=== PATIENT | male | born 1975 | race Caucasian/White ===

== ENCOUNTER 2017-10-04 08:09 | Emergency (ER) | payer BC ==
[2017-10-04 08:21] VITALS: BP 168/90
--- NOTE | 2017-10-04 08:35 | UC ---
Lower Extremity/Ankle HPI - HPI Summary HPI Summary: 41 year old patient, complains of left foot pain onset yesterday but this morning it was very intense. 05/13. Denies history of gout. Denies history of fall, sprain or trauma. Current medications are lisinopril and omeprazole and occasional NSAID for pain. - History of Current Complaint Chief Complaint: UCLowerExtremity Stated Complaint: FOOT PAIN Time Seen by Provider: 10/04/17 08:26 Pain Intensity: 10 - Allergies/Home Medications Allergies/Adverse Reactions: Allergies Allergy/AdvReac Type Severity Reaction Status Date / Time propulcid Allergy Severe coughing Uncoded 10/04/17 08:17 blood PMH/Surg Hx/FS Hx/Imm Hx Previously Healthy: Yes Cardiovascular History: Hypertension GI/ History: Gastroesophageal Reflux - Surgical History Surgical History: None - Social History Alcohol Use: None Substance Use Type: None Smoking Status (MU): Never Smoked Tobacco Review of Systems Constitutional: Negative Musculoskeletal: Arthralgia - left mid foot All Other Systems Reviewed And Are Negative: Yes Physical Exam Triage Information Reviewed: Yes Appearance: Pain Distress, Obese Vital Signs: Initial Vital Signs Temp 98.8 F 10/04/17 08:18 Pulse 92 10/04/17 08:18 Resp 16 10/04/17 08:18 BP 168/90 10/04/17 08:18 Pulse Ox 100 10/04/17 08:18 Vital Signs Reviewed: Yes Eyes: Positive: Conjunctiva Clear Neck: Positive: Supple, Nontender Respiratory: Positive: Chest non-tender, Normal breath sounds, No respiratory distress Cardiovascular: Positive: Pulses Normal, Brisk Capillary Refill Musculoskeletal: Positive: No Edema, Other: - no induration on left foot. No edema or erythema, pedal pulses symmetrical and present, tenderness on plantarflexion and medial midfoot area Skin Exam: Normal Lower Extremity Course/Dx - Course Course Of Treatment: XRAY of left foot within normal limits no fracture. Start indomethacin for pain control. Review of crutch use and boot. Follow up with orthopedics. - Differential Dx/Diagnosis Provider Diagnoses: Left Medial Midfoot pain Discharge - Discharge Plan Condition: Stable Disposition: HOME Patient Education Materials: Arthralgia (ED) Referrals: Felix Herndon MD [Primary Care Provider] - Images Feet (Multiple View): 1 - area of tenderness upon palpation
[2017-10-04] MEDS ORDERED: Indomethacin CAP* 25 MG CAP PO ONE ×3 (08:38→09:46)
--- NOTE | 2017-10-04 09:02 | RAD ---
HISTORY: Navicular bone area pain left foot, trauma COMPARISONS: None VIEWS: 3, Frontal, lateral, and oblique views of the left foot FINDINGS: BONE DENSITY: Normal. BONES: There is no displaced fracture. There are posterior and plantar calcaneal enthesophytes. JOINTS: There is no arthropathy. ALIGNMENT: There is no dislocation. SOFT TISSUES: Unremarkable. OTHER FINDINGS: None. IMPRESSION: HEEL SPURS. NO ACUTE OSSEOUS INJURY. IF SYMPTOMS PERSIST, RECOMMEND REPEAT IMAGING.
[2017-10-04] MEDS ORDERED: Indomethacin CAP* 25 MG CAP PO SCH (14:00)
== END 2017-10-04 10:05 | disposition home or self-care (01) ==
LOC: UCEAST 08:09
DX: M79.672 Pain in left foot (principal); M77.32 Calcaneal spur, left foot; I10 Essential (primary) hypertension; K21.9 Gastro-esophageal reflux disease without esophagitis; Z88.8 Allergy status to other drugs, medicaments and biological substances
CPT/HCPCS: 99213; A9270-GY; G0463

== ENCOUNTER → 2019-10-06 13:11 | Emergency (ER) | payer BC ==
[2019-10-06 13:50] VITALS: BP 130/89
--- NOTE | 2019-10-06 14:26 | UC ---
Allergic Reaction HPI - HPI Summary HPI Summary: PATIENT IS HAVING AN ACUTE GOUTY ATTACK TO HIS RIGHT HEEL. TOOK INDOMETHACIN ABOUT 30 MINUTES PRIOR TO ARRIVAL. ABOUT 20 MINUTES AFTER TAKING THE MEDICATION HE STARTED TO FEEL SWEATY AND LIGHTHEADED. HAD SOME CHEST PAIN AND NAUSEA. STATES HE HAS HAD THIS SAME REACTION TO INDOMETHACIN IN THE PAST. - History of Current Complaint Chief Complaint: UCAllergicReaction Stated Complaint: REACTION TO MEDS Time Seen by Provider: 10/06/19 13:23 Hx Obtained From: Patient Onset/Duration: Sudden Onset, Lasting Minutes, Resolved Severity Initially: Moderate Severity Currently: Mild Pain Intensity: 0 Pain Scale Used: 0-10 Numeric Alleviating Factor(s): Other - SPONTANEOUS RESOLUTION Associated Signs And Symptoms: Positive: Chest Pain, Lightheadedness, Nausea - Allergies/Home Medications Allergies/Adverse Reactions: Allergies Allergy/AdvReac Type Severity Reaction Status Date / Time propulcid Allergy Severe coughing Uncoded 10/04/17 08:17 blood Home Medications: Home Medications Omeprazole CAP (NF) [Prilosec CAP* 20 MG] 20 mg PO DAILY 08/30/12 [History Confirmed 10/04/17] Aleve 2 tab PO PRN 05/11/15 [History Confirmed 06/26/15] Lisinopril TAB* [Prinivil TAB 10 MG*] 30 tab PO DAILY 06/26/15 [History Confirmed 10/04/17] Allopurinol TAB* [Zyloprim 100 MG TAB*] 100 mg PO DAILY 10/06/19 [History Confirmed 10/06/19] Spironolactone [Aldactone 25 MG-] 258 mg PO DAILY 10/06/19 [History Confirmed ] predniSONE 20 mg TAB [Deltasone 20 MG TAB*] 40 mg PO DAILY #8 tab 10/06/19 [Rx] PMH/Surg Hx/FS Hx/Imm Hx - Additional Past Medical History Additional PMH: GOUT Cardiovascular History: Hypertension - Surgical History Surgical History: None - Family History Known Family History: Positive: Hypertension - Social History Alcohol Use: None Substance Use Type: None Smoking Status (MU): Never Smoked Tobacco Review of Systems All Other Systems Reviewed And Are Negative: Yes Constitutional: Positive: Negative ENT: Positive: Negative Respiratory: Positive: Shortness Of Breath Cardiovascular: Positive: Chest Pain Neurological/Mental Status: Positive: Other - DIZZY Physical Exam Triage Information Reviewed: Yes Appearance: Well-Appearing, No Pain Distress, Well-Nourished Vital Signs: Initial Vital Signs Temp 99.0 F 10/06/19 13:43 Pulse 101 10/06/19 13:43 Resp 20 10/06/19 13:43 BP 130/89 10/06/19 13:43 Pulse Ox 99 10/06/19 13:43 Vital Signs Reviewed: Yes Eyes: Positive: Conjunctiva Clear ENT: Positive: Hearing grossly normal, Pharynx normal Neck: Positive: Supple Respiratory Exam: Normal Cardiovascular Exam: Normal Abdomen Description: Positive: Soft Musculoskeletal: Positive: No Edema Neurological: Positive: Alert Psychological: Positive: Age Appropriate Behavior Skin: Negative: Rashes Diagnostics - EKG Cardiac Rate: NL - 88BPM Cardiac Rhythm: Sinus: Normal Ectopy: None ST Segment: Normal Allergic Reaction Course/Dx - Course Course Of Treatment: PATIENT FELT MUCH BETTER AFTER RESTING IN THE URGENT CARE WITHOUT ANY ACUTE INTERVENTION. CHEST PAIN AND SHORTNESS OF BREATH RESOLVED. EKG UNREMARKABLE. I STRONGLY ENCOURAGED HIM TO STOP TAKING INDOMETHACIN FOR HIS ACUTE GOUTY ATTACKS. WILL START A SHORT COURSE OF PREDNISONE. PATIENT HAS A FOLLOW-UP APPOINTMENT WITH HIS PCP TODAY. ENCOURAGED HIM TO KEEP HIS APPOINTMENT TO DISCUSS HIS GOUT MANAGEMENT. - Differential Dx/Diagnosis Provider Diagnosis: Drug allergy Discharge ED - Sign-Out/Discharge Documenting (check all that apply): Patient Departure All imaging exams completed and their final reports reviewed: No Studies - Discharge Plan Condition: Stable Disposition: HOME Prescriptions: predniSONE 20 mg TAB [Deltasone 20 MG TAB*] 40 mg PO DAILY #8 tab Patient Education Materials: Gout (ED), General Allergic Reaction (ED) Referrals: Felix Herndon MD [Primary Care Provider] - (keep your appt this afternoon) Additional Instructions: YOU FELT MUCH BETTER HERE IN URGENT CARE AFTER SOME TIME AND REST. YOUR EKG DID NOT SHOW ANY ACUTE CHANGES. I RECOMMEND YOU STOP TAKING INDOMETHACIN TO TREAT YOUR ACUTE GOUTY ATTACKS. WILL START PREDNISONE 40 MG ONCE DAILY FOR 5 DAYS TODAY. YOUR FIRST DOSE WAS ADMINISTERED HERE IN THE URGENT CARE. KEEP YOUR PCP APPOINTMENT THIS AFTERNOON. - Billing Disposition and Condition Condition: STABLE Disposition: Home
--- OUTSIDE RECORDS SUMMARY | 2019-10-07 15:47 | XMS REPORT | Summary of Care ---
:1975 Author Organization [facility] Address [address] [address] Care Team Providers Name Role Phone Felix Herndon Primary Care Provider Reason for Visit Reason Comments Cough diagnosed at [facility] Encounter Details Date Type Department Care Team Description 08/30/2019 Office Visit [facility] Tammy Beasley, Cough (Primary Dx); [address] [employer] [place] [address] [address] [phone] [place] [address] [phone] Allergies Active Allergy Reactions Severity Noted Date Comments Cisapride Other 10/15/2007 Patient was using Propulsid, Coughed up blood. Drug is now banned in [place]. Environmental Respiratory Reaction 03/15/2013 ,itchy eyes and ears,lots of sneezing. documented as of this encounter (statuses as of 08/30/2019) Medications Medication Sig Dispensed Refills Start Date End Date Status daily vitamin PO Take 1 Tab 0 Active TABS by mouth DAILY. Omeprazole delayed Take 20 mg 30 Cap 5 01/27/2019 Active rel cap 20 MG Oral by mouth CAPSULE DELAYED DAILY. RELEASE Spironolactone-HCT Take 1 Tab 30 Tab 2 05/03/2019 Active Z (ALDACTAZIDE) by mouth 25-25 MG Oral Tab DAILY. lisinopril Take 1.5 45 Tab 2 05/03/2019 Active (PRINIVIL, Tabs by ZESTRIL) 20 MG mouth DAILY. Oral Tab allopurinol Take 1 Tab 30 Tab 5 05/20/2019 Active (ZYLOPRIM) 300 MG by mouth Oral Tab DAILY. indomethacin Take 1 Cap 60 Cap 0 05/20/2019 Active (INDOCIN) 50 MG by mouth Oral Cap THREE TIMES DAILY. metoprolol Take 1 Tab 30 Tab 1 07/07/2019 Active succinate (TOPROL by mouth XL) 50 MG Oral DAILY. TABLET SR 24 HR azithromycin 0 08/27/2019 Active (ZITHROMAX) 250 MG Oral Tab levofloxacin Take 1 Tab 10 Tab 0 08/30/2019 Active (LEVAQUIN) 500 MG by mouth Oral DAILY. TabIndications: Cough guaiFENesin-codein Take 10 mL 420 mL 0 08/30/2019 Active e (ROBITUSSIN AC) by mouth 100-10 MG/5ML Oral EVERY FOUR SolutionIndication HOURS s: Cough NEEDED (cough). Max Daily Amount: 60 mL. Colchicine 0.6 MG Take 1 Tab 30 Cap 0 05/20/2019 Discontinued Oral Cap by mouth TWO 0 (Therapy TIMES DAILY Completed) NEEDED (gout). 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 GERD (gastroesophageal reflux disease) 10/15/2007 Seasonal allergies 10/15/2007 Overview: Springtime. documented as of this encounter (statuses as of 08/30/2019) Resolved Problems Problem Noted Date Resolved Date Knee pain 10/15/2007 05/16/2015 documented as of this encounter (statuses as of 08/30/2019) Social History Tobacco Use Types Packs/Day Years Used Date Never Smoker Smokeless Tobacco: Never Used Alcohol Use Drinks/Week oz/Week Comments No Sex Assigned at Date Recorded Not on file Job Start Date Occupation Industry Not on file Not on file Not on file Travel History Travel Start Travel End No recent travel history available. documented as of this encounter Last Filed Vital Signs Vital Sign Reading Time Taken Comments Blood Pressure 148/70 08/30/2019 10:19 AM EST Pulse 120 08/30/2019 10:19 AM EST Temperature 37.3 08/30/2019 10:19 AM EST C (99.2 F) Respiratory Rate - - Oxygen Saturation 97% 08/30/2019 10:19 AM EST Inhaled Oxygen Concentration - - Weight 122 kg (269 lb) 08/30/2019 10:19 AM EST Height - - Body Mass Index 37.52 07/07/2019 3:55 PM EST documented in this encounter Patient Instructions Patient InstructionsTammy Beasley FNP - 08/30/2019 10:20 AM ESTRest Fluids Steam may help loosen congestion Mucinex thins mucus salt water gargle as needed for sore/scratchy throat Call if symptoms fail to resolve or worsen Antibiotic as directed Use cough med as needed - will make you sleepy documented in this encounter Progress Notes Tammy Beasley FNP - 08/30/2019 10:20 AM EST PATIENT: Lauro Ortega : 1975 DATE OF SERVICE: 08/30/2019 CHIEF COMPLAINT: Chief Complaint Patient presents with Cough diagnosed at [facility] Subjective HISTORY OF PRESENT ILLNESS: Lauro Ortega is a 43-y.o. male. HPI Seen in [facility] 08/27/2019 - cough, wheezing, fever 101. Dx pneumonia - no xray done. Placed on Zpack - no significant improvement. No asthma , no decongestants Past Medical History: Diagnosis Date Anxiety Diverticulitis 2013 GERD (gastroesophageal reflux disease) 10/15/2007 History of Insomnia 10/15/2007 BETTER OFF CAFFEINE History of Kidney Stones 10/15/2007 Hypertension 10/15/2007 Knee pain 10/15/2007 Morbid obesity (HCC) 10/15/2007 Plantar fasciitis 10/15/2007 Better with inserts. Seasonal allergies 10/15/2007 Springtime. History reviewed. No pertinent family history. Current Outpatient Medications Medication Sig allopurinol (ZYLOPRIM) 300 MG Oral Tab Take 1 Tab by mouth DAILY. azithromycin (ZITHROMAX) 250 MG Oral Tab daily vitamin PO TABS Take 1 Tab by mouth DAILY. guaiFENesin-codeine (ROBITUSSIN AC) 100-10 MG/5ML Oral Solution Take 10 mL by mouth EVERY FOUR HOURS NEEDED (cough). Max Daily Amount: 60 mL. indomethacin (INDOCIN) 50 MG Oral Cap Take 1 Cap by mouth THREE TIMES DAILY. levofloxacin (LEVAQUIN) 500 MG Oral Tab Take 1 Tab by mouth DAILY. lisinopril (PRINIVIL, ZESTRIL) 20 MG Oral Tab Take 1.5 Tabs by mouth DAILY. metoprolol succinate (TOPROL XL) 50 MG Oral TABLET SR 24 HR Take 1 Tab by mouth DAILY. Omeprazole delayed rel cap 20 MG Oral CAPSULE DELAYED RELEASE Take 20 mg by mouth DAILY. Spironolactone-HCTZ (ALDACTAZIDE) 25-25 MG Oral Tab Take 1 Tab by mouth DAILY. No current facility-administered medications for this visit. Allergies Allergen Reactions Cisapride Other Patient was using Propulsid, Coughed up blood. Drug is now banned in [place]. Environmental Respiratory Reaction ,itchy eyes and ears,lots of sneezing. Social History Socioeconomic History Marital status: Spouse name: Not on file Number of children: Not on file Years of education: Not on file Highest education level: Not on file Occupational History Not on file Social Needs Financial resource strain: Not on file Food insecurity Worry: Not on file Inability: Not on file Transportation needs Medical: Not on file Non-medical: Not on file Tobacco Use Smoking status: Never Smoker Smokeless tobacco: Never Used Substance and Sexual Activity Alcohol use: No Drug use: No Sexual activity: Yes Partners: Female control/protection: Condom Lifestyle Physical activity Days per week: Not on file Minutes per session: Not on file Stress: Not on file Relationships Social connections Talks on phone: Not on file Gets together: Not on file Attends voodoo service: Not on file Active member of club or organization: Not on file Attends meetings of clubs or organizations: Not on file Relationship status: Not on file Intimate partner violence Fear of current or ex partner: Not on file Emotionally abused: Not on file Physically abused: Not on file Forced sexual activity: Not on file Other Topics Concern Not on file Social History Narrative Not on file REVIEW OF SYSTEMS: Review of Systems Constitutional: Positive for malaise/fatigue. Negative for fever. HENT: Positive for congestion and ear pain. Respiratory: Positive for cough, sputum production, shortness of breath and wheezing. Musculoskeletal: Positive for myalgias. Neurological: Positive for headaches. Objective PHYSICAL EXAM: VITALS: BP (!) 148/70 | Pulse (!) 120 | Temp 99.2 F (37.3 C) ( Tympanic) | Wt 269 lb (122kg) | SpO2 97% | BMI 37.52 kg/m Body mass index is 37.52 kg/m. Physical Exam Vitals signs and nursing note reviewed. Constitutional: Appearance: He is obese. He is not diaphoretic. Comments: flushed HENT: Head: Normocephalic and atraumatic. Right Ear: Tympanic membrane normal. Left Ear: Tympanic membrane normal. Nose: Nose normal. Mouth/Throat: Mouth: Mucous membranes are moist. Pharynx: No oropharyngeal exudate or posterior oropharyngeal erythema. Eyes: Extraocular Movements: Extraocular movements intact. Conjunctiva/sclera: Conjunctivae normal. Neck: Musculoskeletal: Normal range of motion and neck supple. No neck rigidity. Cardiovascular: Rate and Rhythm: Normal rate and regular rhythm. Pulmonary: Effort: Pulmonary effort is normal. No respiratory distress. Breath sounds: No wheezing, rhonchi or rales. Comments: CXR pending report Lymphadenopathy: Cervical: No cervical adenopathy. Skin: General: Skin is warm and dry. Coloration: Skin is not ashen, cyanotic or pale. Comments: flushed Neurological: Mental Status: He is alert and oriented to person, place, and time. Cranial Nerves: Cranial nerves are intact. Psychiatric: Mood and Affect: Mood normal. Behavior: Behavior normal. Behavior is cooperative. ASSESSMENT / IMPRESSION: ICD-9-CM ICD-10-CM 1. Cough 786.2 R05 XR CHEST 2 VIEW PA AND LATERAL (STANDARD) levofloxacin (LEVAQUIN) 500 MG Oral Tab guaiFENesin-codeine (ROBITUSSIN AC) 100-10 MG/5ML Oral Solution ? pneumonia 2. Flu-like symptoms 780.99 R68.89 Plan Rest Fluids Steam may help loosen congestion Mucinex thins mucus salt water gargle as needed for sore/scratchy throat Call if symptoms fail to resolve or worsen Antibiotic as directed Use cough med as needed - will make you sleepy Author: SUPA Mccain 08/30/2019 10:58 documented in this encounter Plan of Treatment Date Type Specialty Care Team Description 08/30/2019 Ancillary Procedure Radiology Cough Name Type Priority Associated Diagnoses Date/Time XR CHEST 2 VIEW PA AND Imaging Routine Cough 08/30/2019 10:50 AM EST LATERAL (STANDARD) Name Type Priority Associated Diagnoses Order Schedule XR CHEST 2 VIEW PA AND Imaging Routine Cough 1 Occurrences starting LATERAL (STANDARD) 08/30/2019 until 08/29/2020 Health Maintenance Due Date Last Done Comments DTaP/Tdap/Td Vaccines (1 - 1985 Tdap) DEPRESSION SCREENING 12/01/2019 11/30/2018 DIABETES SCREENING 04/01/2020 04/01/2019, 11/30/2018, 11/20/2018, Additional history exists LIPID DISORDER SCREENING 04/01/2020 04/01/2019 INFLUENZA VACCINE (#1) 2020 Postponed from 04/04/2019 (Patient refused) HEPATITIS A IMMUNIZATION Aged Out No longer eligible SERIES based on patient's age to complete this topic HPV IMMUNIZATION SERIES Aged Out No longer eligible based on patient's age to complete this topic MENINGOCOCCAL VACCINE IMM Aged Out No longer eligible based on patient's age to complete this topic PNEUMOCOCCAL 0-64 YRS Aged Out No longer eligible based on patient's age to complete this topic documented as of this encounter Goals Goal Patient Goal Associated Recent Patient-Stated? Author Type Problems Progress Blood Pressure Blood Pressure 148/70 No Katrina, < 140/90 (08/30/2019 MD Felix 10:19 AM EST) Note: This is an individualized treatment (blood pressure) goal for Lauro Ortega: Displayed above (on the left) is your goal for blood pressure control. Your most recent blood pressure is also shown above, on the right. You should try to achieve blood pressures that are lower than your goal listed above (on the left). Unit - lb < 250 Result Component No Felix Herndon MD Take all prescribed medications as directed Self-management No Felix Herndon MD Note: This is an individualized self-management goal for Lauro Ortega: Please take all prescribed medications as directed. 1. Do not skip doses. If you cannot afford your medications, talk with your doctor. 2. Use a pill reminder system such as a pill box if needed. Your pharmacist can help you with this. 3. Contact your Pharmacy 5 days before your medication runs out. If you cannot take your medications for any reasons, talk with your doctor. 4. Please bring all of your medication bottles and inhalers (or a list of all your medications/inhalers) with you to every visit. Potential barriers to meeting all of your care plan goals will continue to be addressed on an ongoing basis. documented as of this encounter Results Not on filedocumented in this encounter Visit Diagnoses Diagnosis Cough Diagnosis Cough Flu-like symptoms Influenza with other respiratory manifestations documented in this encounter Insurance Payer Benefit Plan / Subscriber ID Effective Dates Phone Address Type Group [facility] [place] [place] [address]-Present [address] [phone] [place], [place] (Work) [id number] documented as of this encounter"
--- OUTSIDE RECORDS SUMMARY | 2019-10-07 15:47 | XMS REPORT | Summary of Care ---
:1975 Author Organization [facility] Address [address] [place] [address] Care Team Providers Name Role Phone Felix Herndon Primary Care Provider Reason for Visit Reason Comments Cough w/ yellow/ white phlegm, fatigue, and SOB. ongoing since seeing Miguel Beasley 08/30/19 Encounter Details Date Type Department Care Team Description 09/13/2019 Office Visit [place] Tamia Banuelos, Acute URI (Primary Dx) Practice PA-C [address] [place], [place] [id number] [place] [address] [phone] Allergies Active Allergy Reactions Severity Noted Date Comments Cisapride Other 10/15/2007 Patient was using Propulsid, Coughed up blood. Drug is now banned in [place]. Environmental Respiratory Reaction 03/15/2013 ,itchy eyes and ears,lots of sneezing. documented as of this encounter (statuses as of 09/13/2019) Medications Medication Sig Dispensed Refills Start Date End Date Status daily vitamin PO Take 1 Tab by 0 Active TABS mouth DAILY. Omeprazole Take 20 mg by 30 Cap 5 01/27/2019 Active delayed rel cap mouth DAILY. 20 MG Oral CAPSULE DELAYED RELEASE lisinopril Take 1.5 Tabs 45 Tab 2 05/03/2019 Active (PRINIVIL, by mouth DAILY. ZESTRIL) 20 MG Oral Tab allopurinol Take 1 Tab by 30 Tab 5 05/20/2019 Active (ZYLOPRIM) 300 MG mouth DAILY. Oral Tab indomethacin Take 1 Cap by 60 Cap 0 05/20/2019 Active (INDOCIN) 50 MG mouth THREE Oral Cap TIMES DAILY. metoprolol Take 1 Tab by 30 Tab 1 07/07/2019 Active succinate (TOPROL mouth DAILY. XL) 50 MG Oral TABLET SR 24 HR guaiFENesin-codei Take 10 mL by 420 mL 0 08/30/2019 Active ne (ROBITUSSIN mouth EVERY AC) 100-10 MG/5ML FOUR HOURS Oral NEEDED (cough). SolutionIndicatio Max Daily ns: Cough Amount: 60 mL. Spironolactone-HC Take 1 Tab by 30 Tab 1 09/09/2019 Active TZ (ALDACTAZIDE) mouth DAILY. 25-25 MG Oral Tab albuterol HFA Take 2 Puffs by 1 Inhaler 0 09/09/2019 Active (VENTOLIN) 108 inhalation (90 Base) MCG/ACT EVERY SIX HOURS Inhalation Aero NEEDED Soln (SOB). doxycycline Take 100 mg by 20 Tab 0 09/13/2019 Active (VIBRAMYCIN) 100 mouth TWICE MG Oral Tab DAILY. Benzonatate 200 Take 1 Cap by 21 Cap 0 09/13/2019 Active MG Oral Cap mouth THREE TIMES DAILY NEEDED (cough). azithromycin 0 08/27/2019 Discontinued (ZITHROMAX) 250 0 (Error) MG Oral Tab levofloxacin Take 1 Tab by 10 Tab 0 08/30/2019 Discontinued (LEVAQUIN) 500 MG mouth DAILY. 0 (Error) Oral TabIndications: Cough documented as of this encounter (statuses as of 09/13/2019) Active Problems Problem Noted Date Wrist pain, acute, right 07/14/2017 Male pattern baldness 05/16/2015 Anxiety state 03/15/2013 Morbid obesity 10/15/2007 Hypertension 10/15/2007 History of Insomnia 10/15/2007 History of Kidney Stones 10/15/2007 Plantar fasciitis 10/15/2007 Overview: Better with inserts. GERD (gastroesophageal reflux disease) 10/15/2007 Seasonal allergies 10/15/2007 Overview: Springtime. documented as of this encounter (statuses as of 09/13/2019) Resolved Problems Problem Noted Date Resolved Date Knee pain 10/15/2007 05/16/2015 documented as of this encounter (statuses as of 09/13/2019) Social History Tobacco Use Types Packs/Day Years [...] Sign Reading Time Taken Comments Blood Pressure 132/82 09/13/2019 2:11 PM EST Pulse 107 09/13/2019 2:11 PM EST Temperature 36.9 09/13/2019 2:11 PM EST C (98.4 F) Respiratory Rate - - Oxygen Saturation 97% 09/13/2019 2:11 PM EST Inhaled Oxygen Concentration - - Weight 126.1 kg (278 lb) 09/13/2019 2:11 PM EST Height 180.3 cm (5' 11") 09/13/2019 2:11 PM EST Body Mass Index 38.77 09/13/2019 2:11 PM EST documented in this encounter Patient Instructions Patient InstructionsDoTamia feng PA-C - 09/13/2019 2:00 PM ESTEscribed Doxy 100mg, 1 pill twice a day x 10 days, take with food Escribed TEssalon pearls, take 1 pill up to 3 x daily for cough Avoid creamy foods and drink Rest, gargle with warm salt water Push water, soup, juice, tea with honey/lemon OTC Tylenol/Ibuprofen for fever/pain Cool mist vaporizer at bedtime Call if not improving or with any questions or concerns documented in this encounter Progress Notes Tamia Weeks PA-C - 09/13/2019 2:00 PM EST PATIENT: Lauro Ortega : 1975 DATE OF SERVICE: 09/13/2019 REFERRING PRACTITIONER: Self-Referred PRIMARY CARE PROVIDER: Felix Herndon CHIEF COMPLAINT: Chief Complaint Patient presents with Cough w/ yellow/ white phlegm, fatigue, and SOB. ongoing since seeing Miguel Beasley Subjective HISTORY OF PRESENT ILLNESS: Lauro Ortega is a 43-y.o. male who presents with coughing -- yellow/white sputum, fatigue, SOB x 2 weeks Was seen by TOMAS Munoz 08/30/19, diagnosed with cough and flu-like symptoms, xray done, was prescribedlevofloxacin 500mg once daily x 10 days, robitussion AC cough syrup Patient called in, Dr. Herndon called in albuterol inhaler, using every 6hrs, gives some relief Home heat is hot, forced air, using humidifier Denies fever, chills, nausea, vomiting, diarrhea, chest pains, SOB Past Medical History: Diagnosis Date Anxiety Diverticulitis 2013 GERD (gastroesophageal reflux disease) 10/15/2007 History of Insomnia 10/15/2007 BETTER OFF CAFFEINE History of Kidney Stones 10/15/2007 Hypertension 10/15/2007 Knee pain 10/15/2007 Morbid obesity (HCC) 10/15/2007 Plantar fasciitis 10/15/2007 Better with inserts. Seasonal allergies 10/15/2007 Springtime. No past surgical history on file. No family history on file. Current Outpatient Medications Medication Sig albuterol HFA (VENTOLIN) 108 (90 Base) MCG/ACT Inhalation Aero Soln Take 2 Puffs by inhalation EVERY SIX HOURS NEEDED (SOB). allopurinol (ZYLOPRIM) 300 MG Oral Tab Take 1 Tab by mouth DAILY. daily vitamin PO TABS Take 1 Tab by mouth DAILY. guaiFENesin-codeine (ROBITUSSIN AC) 100-10 MG/5ML Oral Solution Take 10 mL by mouth EVERY FOUR HOURS NEEDED (cough). Max Daily Amount: 60 mL. indomethacin (INDOCIN) 50 MG Oral Cap Take 1 Cap by mouth THREE TIMES DAILY. lisinopril (PRINIVIL, ZESTRIL) 20 MG Oral [...] file Gets together: Not on file Attends roman catholic service: Not on file Active member of [...] Narrative Not on file REVIEW OF SYSTEMS: Skin: negative skin lesions Eyes: negative visual blurring Ears/Nose/Throat: positive rhinorrhea, sinus pressure, post nasal drip Respiratory: positive cough Cardiovascular: negative chest pain Gastrointestinal: negative abdominal pain, constipation, diarrhea, nausea or vomiting Genitourinary: negative burning on urination, dysuria Musculoskeletal: negative arthritis/joint pain Neurologic: negative numbness or tingling of feet or hands Psychiatric: negative anxiety Hematologic/Lymphatic/Immunologic: positive seasonal allergies Endocrine: negative diabetes or hot flashes/sweats Objective PHYSICAL EXAMINATION: VITALS: BP 132/82 (BP Location: Right arm, Patient Position: Sitting) | Pulse 107 | Temp 98.4 F (36.9 C) | Ht 5' 11" (1.803 m) | Wt 278 lb (126.1 kg) | SpO2 97% | BMI 38.77 kg/m Body mass index is 38.77 kg/m. General appearance: alert, moderate distress, cooperative, oriented times 3, obese Skin: Skin color, texture, turgor normal. No rashes or lesions. Head: Normocephalic. No masses, lesions, tenderness or abnormalities Eyes: conjunctivae/corneas clear. PERRL, EOM's intact. Ears: positive findings: TMs bulging mildly bilaterally Nose/Sinuses: positive findings: mucosa erythematous and swollen, clear rhinorrhea Oropharynx: positive findings: mild oropharyngeal erythema, post nasal drip present Neck: Neck supple, FROM. No cervical or supraclavicular adenopathy. Lungs: mild rhonchi bilaterally lower Heart: RRR. No murmur, clicks or gallops. No peripheral edema . IMPRESSION: ICD-9-CM ICD-10-CM 1. Acute URI 465.9 J06.9 Plan PLAN: Escribed Doxy 100mg, 1 pill twice a day x 10 days, take with food Escribed TEssalon pearls, take 1 pill up to 3 x daily for cough Avoid creamy foods and drink Rest, gargle with warm salt water Push water, soup, juice, tea with honey/lemon OTC Tylenol/Ibuprofen for fever/pain Cool mist vaporizer at bedtime Call if not improving or with any questions or concerns Author: Tamia Weeks PA-C 09/13/2019 14:11 documented in this encounter Plan of Treatment Health Maintenance Due Date Last Done Comments DTaP/Tdap/Td Vaccines ( - 1985 Tdap) DEPRESSION SCREENING 12/01/2019 11/30/2018 [...] Type Problems Progress Blood Pressure Blood Pressure 132/82 No Katrina, < 140/90 (09/13/2019 MD Felix 2:11 PM EST) Note: This is an individualized treatment [...] filedocumented in this encounter Visit Diagnoses Diagnosis Acute URI Acute upper respiratory infections of unspecified site documented in this encounter Insurance Payer Benefit Plan / Subscriber ID Effective Dates Phone Address Type Group [employer] xxxxxxxxxxxx 2017-Present [employer] [address] [phone] [place], [place] (Work) [id number] documented as of this encounter
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
== END | disposition home or self-care (01) ==
LOC: UCEAST 13:11
DX: R11.0 Nausea (principal); T39.395A Adverse effect of other nonsteroidal anti-inflammatory drugs [NSAID], initial encounter; I10 Essential (primary) hypertension; M10.9 Gout, unspecified; R06.02 Shortness of breath; Y92.9 Unspecified place or not applicable; Z88.8 Allergy status to other drugs, medicaments and biological substances; Z79.899 Other long term (current) drug therapy
CPT/HCPCS: 93005; 99212; G0463; J7512